=== PATIENT | female | born 1970 | race Two or more races ===

== ENCOUNTER 2022-08-01 06:05 | Emergency (ER) | payer BC ==
[~2022-08-01] VITALS: Ht 162.6 cm; Wt 100.0 kg
[~2022-08-01 06:05] MED LIST: CLIN150C8
[2022-08-01 06:55] LABS: Urine Bacteria FEW /hpf (None Seen); Urine Blood Negative /uL (Negative); Urine Hyaline Cast FEW /lpf (0 - 2); Urine Mucus FEW (None Seen); Urine Specific Gravity 1.014 (1.001-1.035); Urine WBC 25 /hpf (0 - 5)
[2022-08-01] MEDS ORDERED: SODIUM CHLORIDE 0.9% 1,000 ML IV ONE ×2 (08:00)
[2022-08-01] MEDS ORDERED: PROMETHAZINE HCL 25 MG/ML 1ML IV ONE (08:00)
[2022-08-01] MEDS ORDERED: MORPHINE SULFATE 4 MG/ML SYR/VIAL IV ONE (08:00)
[2022-08-01] MEDS ORDERED: IOHEXOL 300 MG/ML 100ML BOTTLE IJ ONE (08:01)
[2022-08-01 08:14] LABS: Basophils # (auto) 0 10 ^3/uL (0-0.2); Basophils % (auto) 0.4 % (0.0-2.0); Eosinophils # (auto) 0.1 10 ^3/uL (0-0.8); Eosinophils % (auto) 1.1 % (0.0-7.0); Hematocrit 45.5 % (36.0-46.0); Hemoglobin 15.4 g/dL (12.2-16.2); Lymphocytes # (auto) 1.2 10 ^3/uL (0.4-5.4); Mean Corpuscular Hemoglobin 28.9 pg (28.0-32.0); Mean Corpuscular Hgb Conc. 33.9 g/dL (32.0-36.0); Mean Corpuscular Volume 85.4 fL (80.0-100.0); Monocytes # (auto) 0.5 10 ^3/uL (0-1.3); Monocytes % (auto) 9.2 % (0.0-12.0); Neutrophils % (auto) 68.3 % (37.0-80.0); Nucleated Red Blood Cells % 0.1 %; Red Blood Cells 5.33 10^6/uL (4.0-5.20); Red Cell Distribution Width 13.7 % (11.8-14.3); White Blood Cell 5.8 10^3/uL (4.4-10.8)
[2022-08-01] MEDS ORDERED: cefTRIAXone 1GM/50ML D5W 50 ML IV ONE (08:30)
[2022-08-01 08:40] LABS: Albumin 3.6 g/dL (3.4-5.0); Potassium 3.4 mmol/L (3.5-5.1)
[2022-08-01 08:43] LABS: BUN/Creatinine Ratio 9.3; Bilirubin, Total 0.8 mg/dL (0.2-1.0); Total Protein 7.7 g/dL (6.4-8.2)
[2022-08-01 09:17] LABS: Lactic Acid w/Reflex 2.3 mmol/L (0.4-2.0)
[2022-08-01] MEDS ORDERED: CEPH-510 PO (11:07)
[2022-08-01 11:14] VITALS: BP 112/69
== END 2022-08-01 11:29 | disposition home or self-care (01) ==
LOC: ER 06:05 → EEVIPCON 06:05 → ER 11:29
DX: N39.0 Urinary tract infection, site not specified (principal); E11.9 Type 2 diabetes mellitus without complications; I10 Essential (primary) hypertension; Z98.51 Tubal ligation status; Z88.1 Allergy status to other antibiotic agents
CPT/HCPCS: 36415; 71045; 74177; 80053; 81001; 83605; 83690; 85025; 87040; 93005; 96361; 96365; 96375; 99285; J0696; J2270; J2550; J7030; Q9967

== ENCOUNTER 2022-09-01 07:37 | Day surgery (SDC) | payer BC ==
[2022-08-30 12:28] LABS: Basophils # (auto) 0 10 ^3/uL (0-0.2); Basophils % (auto) 0.2 % (0.0-2.0); Eosinophils # (auto) 0.1 10 ^3/uL (0-0.8); Eosinophils % (auto) 1.3 % (0.0-7.0); Hematocrit 44.4 % (36.0-46.0); Hemoglobin 14.9 g/dL (12.2-16.2); Lymphocytes # (auto) 2.7 10 ^3/uL (0.4-5.4); Lymphocytes % (auto) 41.5 % (10.0-50.0); Mean Corpuscular Hgb Conc. 33.6 g/dL (32.0-36.0); Mean Corpuscular Volume 86.2 fL (80.0-100.0); Monocytes # (auto) 0.4 10 ^3/uL (0-1.3); Monocytes % (auto) 6.4 % (0.0-12.0); Neutrophils # (auto) 3.2 10 ^3/uL (1.6-8.6); Neutrophils % (auto) 50.6 % (37.0-80.0); Nucleated Red Blood Cells % 0.2 %; Red Blood Cells 5.15 10^6/uL (4.0-5.20); Red Cell Distribution Width 13.7 % (11.8-14.3); White Blood Cell 6.4 10^3/uL (4.4-10.8)
[2022-08-30 12:50] LABS: INR 0.96 (0.9-1.15); Partial Thromboplastin Time 25.9 sec (24.6-33.4)
[2022-08-30 13:13] LABS: BUN/Creatinine Ratio 11.7; Calcium 9.3 mg/dL (8.5-10.1); Potassium 3.7 mmol/L (3.5-5.1); Total Protein 7.9 g/dL (6.4-8.2)
[2022-08-30 13:15] LABS: Bilirubin, Total 0.7 mg/dL (0.2-1.0)
[~2022-09-01] VITALS: Ht 162.6 cm; Wt 98.4 kg
[~2022-09-01 07:37] MED LIST changes: +AMLO-489 PO; -CLIN150C8; +LIDOCAINE VISCOUS 2% 15ML UD ONE; +METF-372 PO; +diphenhdrAMINE HCL 50 MG/1 ML VL ONE
[2022-09-01] MEDS: fentaNYL CITRATE 100 MCG/2 ML VL ONE ×2 (09:05→09:08)
[2022-09-01] MEDS: MIDAZOLAM HCL 5 MG/ML-1ML VIAL ONE ×2 (09:05→09:08)
[2022-09-01] MEDS ORDERED: ONDANSETRON HCL 4 MG/2 ML VIAL ONE (09:14)
[2022-09-01 09:45] VITALS: BP 115/85
== END 2022-09-01 09:55 | disposition home or self-care (01) ==
LOC: GI 07:37
PROVIDERS: ATTEND Internal Medicine Gastroenterology
DX: R10.11 Right upper quadrant pain (principal); K29.50 Unspecified chronic gastritis without bleeding; K29.80 Duodenitis without bleeding; B96.81 Helicobacter pylori [H. pylori] as the cause of diseases classified elsewhere; I10 Essential (primary) hypertension; E11.9 Type 2 diabetes mellitus without complications; Z98.51 Tubal ligation status; Z20.822 Contact with and (suspected) exposure to COVID-19
CPT/HCPCS: 36415; 43239; 80053; 82962; 85025; 85610; 85730; 88305; 88342; J1200; J2250; J2405; J3010; J7030; U0003

== ENCOUNTER 2025-08-28 12:17 | Outpatient (CLI) | payer BC ==
[~2025-08-28 12:17] MED LIST changes: -AMLO-489 PO; +AMLO1TAB22 PO; -LIDOCAINE VISCOUS 2% 15ML UD ONE; -diphenhdrAMINE HCL 50 MG/1 ML VL ONE
[2025-08-28 12:37] LABS: Hematocrit 46.8 % (36.0-46.0); Hemoglobin 16.2 g/dL (12.2-16.2); Mean Corpuscular Hemoglobin 30.7 pg (28.0-32.0); Mean Corpuscular Volume 88.6 fL (80.0-100.0); Nucleated Red Blood Cells % 0.1 %
[2025-08-28 13:07] LABS: Alanine Aminotransferase 29 U/L (7-40); Albumin 4.6 g/dL (3.2-4.8); Amylase 71 U/L (30-118); Anion Gap 11 (5-15); BUN/Creatinine Ratio 9.4 (10.0-20.0); Calcium 9.9 mg/dL (8.7-10.4); Carbon Dioxide 28 mmol/L (20-31); Chloride 101 mmol/L (98-107); Lipase 41 U/L (12-53); Potassium 4.7 mmol/L (3.5-5.1); Sodium 140 mmol/L (136-145); Total Protein 7.9 g/dL (5.7-8.2)
[2025-08-28 13:08] LABS: Bilirubin, Total 0.8 mg/dL (0.2-1.0)
[2025-08-28 13:10] LABS: Alkaline Phosphatase 144 U/L (46-116); Blood Urea Nitrogen 6 mg/dL (9-23); Glucose 234 mg/dL (74-106)
== END 2025-08-28 17:00 | disposition home or self-care (01) ==
LOC: LAB 12:17
PROVIDERS: ATTEND Nurse Practitioner Family
DX: R10.11 Right upper quadrant pain (principal)
CPT/HCPCS: 36415; 80053; 82150; 83690; 85025

== ENCOUNTER 2025-08-30 11:02 | Emergency (ER) | payer BC ==
[~2025-08-30] VITALS: Ht 162.6 cm; Wt 91.4 kg
--- NOTE | 2025-08-30 12:15 | ED.PDOC ---
GI ASSESSMENT HPI Comments A 55 YEAR OLD FEMALE PRESENTS TO THE ED WITH COMPLAINT OF ABDOMINAL PAIN. PATIENT STATES SHE HAS BEEN HAVING EPIGASTRIC ABDOMINAL RADIATING TO THE RIGHT FLANK FOR THE PAST ONE WEEK. PATIENT STATES SHE WAS AT [facility] THREE DAYS PRIOR WITH SIMILAR SYMPTOMS AND HAD UTRASOUND PATIENT STATES ULTRASOUND DID NOT SHOW GALLSTONES. PATIENT WAS OTHERWISE STATES SHE WAS DISCHARGED WITH PAIN MEDICATIONS. PATIENT STATES SHE CAME BACK TODAY DUE TO PERSISTENCE OF HER PAIN WITH ASSOCIATED NAUSEA. PATIENT DENIES FEVER, CHILLS, SHORTNESS OF BREATH, CHEST PAIN, VOMITING, HEADACHE, OR OTHER COMPLAINTS. NO OTHER SYMPTOMS OR MODIFYING FACTORS AT THIS TIME. PATIENT IS ALERT, ORIENTED X 4, AND HAS STEADY GAIT. Chief Complaint: Abdominal Pain Time Seen by MD: 12:12 Reviewed Notes: Nurses Notes, Medications, Allergies Allergies: Coded Allergies: Erythromycin (Verified Allergy, Unknown, 08/01/22) Home Meds Active Scripts Ondansetron Odt 4MG Tab (ZOFRAN PO) 4 Mg Tb, 4 MG PO BID, #20 TAB ODT TAB-DISSOLVE IN MOUTH, THEN SWALLOW Prov:MANUELA OROSCO 08/30/25 Methocarbamol (Methocarbamol) 750 Mg Tab, 750 MG PO BID, #20 TAB Prov:MANUELA OROSCO 08/30/25 Ibuprofen (Ibuprofen) 800 Mg Tab, 1 TAB PO TID, #30 TAB Prov:MANUELA OROSCO 08/30/25 Reported Medications Metformin Hydrochloride (Metformin Hcl) 1,000 Mg Tab, 1000 MG PO BID, TAB 08/30/22 Amlodipine Besylate (Amlodipine Besylate) 5 Mg Tab, 5 MG PO DAILY, TAB 08/30/22 Information Source: Patient Mode of Arrival: Ambulatory Brought in by: SELF Timing: Days Duration: Since onset, Days Prehospital treatment: Treatment Quality: Aching, Cramping, Colicky Vomitus: None Stool: Normal Severity: Moderate Recent: None Recent Hx of: None Pain Location: RUQ, Other (RIGHT MIDDLE BACK ) Modifying Factors: Movement Associated sign and symptoms: Nausea, Abdominal Pain Past Medical History PAST MEDICAL HISTORY: DM, HTN Surgical History: BTL DISTRIBUTION SUPERVISOR History: No Pertinent DISTRIBUTION SUPERVISOR History Family History Family History: Reviewed,noncontributory to illness Social History Smoker: Non-Smoker Alcohol: Denies ETOH Use Drugs: Denies Drug Use Lives In: Home Constitutional: denies: chills, diaphoresis, fatigue, fever, malaise, sweats, weakness, others EENTM: denies: blurred vision, double vision, ear bleeding, ear discharge, ear drainage, ear pain, ear ringing, eye pain, eye redness, hearing loss, mouth pain, mouth swelling, nasal discharge, nose bleeding, nose congestion, nose pain, photophobia, tearing, throat pain, throat swelling, voice changes, others Respiratory: denies: cough, hemoptysis, orthopnea, SOB at rest, shortness of breath, SOB with excertion, stridor, wheezing, others Cardiovascular: denies: chest pain, dizzy spells, diaphoresis, Dyspnea on e xertion, edema, irregular heart beat, left arm pain, lightheadedness, palpitations, PND, syncope, others Gastrointestinal: reports: abdominal pain, nausea; denies: abdomen distended, blood streaked bowels, constipated, diarrhea, dysphagia, difficulty swallowing, hematemesis, melena, poor appetite, poor fluid intake, rectal bleeding, rectal pain, vomiting, others Genitourinary: denies: abnormal vagina bleeding, burning, dyspareunia, dysuria, flank pain, frequency, hematuria, incontinence, pain, , vagina discharge, urgency, others Neurological: denies: dizziness, fainting, headache, left sided numbness, left sided weakness, numbness, paresthesia, pre-existing deficit, right sided numbness, right sided weakness, seizure, speech problems, tingling, tremors, weakness, others Musculoskeletal: reports: back pain, muscle pain; denies: gout, joint pain, joint swelling, muscle stiffness, neck pain, others Integumetry: denies: bruises, change in color, change in hair/nails, dryness, laceration, lesions, lumps, rash, wounds, others Allergic/Immunocompromised: denies: Difficulty Healing, Frequent Infections, Hives, Itching, others Hematologic/Lymphatic: denies: anemia, blood clots, easy bleeding, easy bruising, swollen glands, others Endocrine: denies: excessive hunger, excessive sweating, excessive thirst, excessive urination, flushing, intolerance to cold, intolerance to heat, unexpla ined weight gain, unexplained weight loss, others Psychiatric: denies: anxiety, bipolar disorder, depression, hopeless, panic disorder, schizophrenia, sleepless, suicidal, others All Other Systems: Reviewed and Negative Physical Exam General Appearance: Mild Distress, Obese HEENT: Normal ENT Inspection, PERRL/EOMI, Pharynx Normal, TMs Normal Neck: Full Range of Motion, Non-Tender, Normal, Normal Inspection Respiratory: Chest Non-Tender, Lungs Clear, No Accessory Muscle Use, No Respiratory Distress, Normal Breath Sounds Cardiovascular: No Edema, No JVD, No Murmur, No Gallop, Normal Peripheral Pul ses, Regular Rate/Rhythm Breast Exam: Deferred Gastrointestinal: No Organomegaly, No Pulsatile Mass, Normal Bowel Sounds, RUQ, Soft, Tenderness (RIGHT UPPER ABD TO MIDDLE BACK, NO GUARDING AND REBOUND TENDERNESS. ) Genitalia: Deferred Pelvic: Deferred Rectal: Deferred Extremities: No calf tenderness, Normal capillary refill, Normal inspection, Normal range of motion, Non-tender, No pedal edema Musculoskeletal : Location: Right Extremity Location: Back Apperance: Tenderness: Moderate (MUSCLE SPASM ON RIGHT MIDDLE BACK, NO BONY TENDERNESS AND SWELLING. 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 Was a procedure done?: No GI differential Dx Differential Diagnosis: Appendicitis, Cholecystitis, Constipation, Gastritis/PUD, Gastroenteritis, UTI, Urolithiasis, Dehydration, Food Poisoning, Bacterial, Viral, Stress Ulcer, Kidney Stone Other Differential Diagnosis , BILIARY COLIC, GALLSTONES X-Ray, Labs, Meds, VS Vital Signs Date Time Temp Pulse Resp B/P (MAP) Pulse Ox O2 Delivery O2 Flow Rate FiO2 08/30/25 13:32 98.5 74 16 149/83 (105) 96 98.5 08/30/25 11:14 87 08/30/25 11:04 98.1 106 20 150/82 100 98.1 Lab Test 08/30/25 13:05 Range/Units White Blood Count 4.8 # 4.4-10.8 10^3/uL Red Blood Count 5.16 4.0-5.20 10^6/uL Hemoglobin 15.8 12.2-16.2 g/dL Hematocrit 45.5 36.0-46.0 % Mean Corpuscular Volume 88.2 80.0-100.0 fL Mean Corpuscular Hemoglobin 30.6 28.0-32.0 pg Mean Corpuscular Hemoglobin Concent 34.7 32.0-36.0 g/dL Red Cell Distribution Width 13.0 11.8-14.3 % Platelet Count 287 140-450 10^3/uL Mean Platelet Volume 6.9 6.9-10.8 fL Neutrophils (%) (Auto) 60.3 37.0-80.0 % Lymphocytes (%) (Auto) 29.4 10.0-50.0 % Monocytes (%) (Auto) 8.1 0.0-12.0 % Eosinophils (%) (Auto) 1.8 0.0-7.0 % Basophils (%) (Auto) 0.4 0.0-2.0 % Neutrophils # (Auto) 2.9 1.6-8.6 10 ^3/uL Lymphocytes # (Auto) 1.4 0.4-5.4 10 ^3/uL Monocytes # (Auto) 0.4 0-1.3 10 ^3/uL Eosinophils # (Auto) 0.1 0-0.8 10 ^3/uL Basophils # (Auto) 0 0-0.2 10 ^3/uL Nucleated Red Blood Cells 0.0 % Sodium Level 138 136-145 mmol/L Potassium Level 4.0 3.5-5.1 mmol/L Chloride Level 100 98-107 mmol/L Carbon Dioxide Level 29 20-31 mmol/L Anion Gap 9 5-15 Blood Urea Nitrogen 7 L 9-23 mg/dL Creatinine 0.68 0.550-1.02 mg/dL Glomerular Filtration Rate Calc 103 >90 mL/min BUN/Creatinine Ratio 10.3 10.0-20.0 Serum Glucose 260 H 74-106 mg/dL Calcium Level 9.9 8.7-10.4 mg/dL Total Bilirubin 0.8 0.2-1.0 mg/dL Aspartate Amino Transferase (AST) 18 13-40 U/L Alanine Aminotransferase (ALT) 27 7-40 U/L Alkaline Phosphatase 132 H 46-116 U/L Total Protein 7.7 5.7-8.2 g/dL Albumin 4.5 3.2-4.8 g/dL Lipase 37 12-53 U/L Current Medications Medications (Trade) Dose Ordered Sig/Castro Route Start Time Stop Time Status Last Admin Sodium Chloride 1,000 ml @ 1,000 mls/hr Q1H ONCE IV 08/30/25 13:30 08/30/25 14:29 DC 08/30/25 13:[address] [address] Ph: [phone] DIAGNOSTIC IMAGING Diagnostic Imaging Report : [id number] Signed PATIENT: MAYELA DOMINGUEZ ACCT: [id number] UNIT: [id number] : 1970 LOC: ER ROOM / BED: / AGE / SEX: 55 / F ADM STATUS: REG ER SERVICE 1218 ORDERING PHYSICIAN: MANUELA OROSCO PROCEDURE(s): ABPL - CT AB PEL WO CON-NO ORAL OR IV REASON: RIGHT FLANK PAIN ORDER NUMBER(s): [id number], ACCESSION NUMBER(s): [id number] Indication: RIGHT FLANK PAIN Technique: CT axial images of the abdomen and pelvis are obtained without contrast. Coronal and sagittal reformats were obtained. Radiation Dose Information: CTDI volume is 20.45 mGy. Dose-length product is 1034.19 mGy*cm Comparison: CT ABD PELVIS WO CONTRAST on DOS: 03/05/22 FINDINGS: There is limited interpretation of the abdomen and pelvis without administration of intravenous contrast. Lung bases demonstrate no pleural effusion. Adrenal glands, spleen, pancreas unremarkable in shape. Hepatic steatosis. No CT evidence for cholelithiasis. No hydronephrosis, nephrolithiasis. Stomach is partially distended. Small bowel loops are normal in caliber. Colonic diverticula. Moderate volume stool throughout the colon. Normal appendix. Abdominal aortic atherosclerotic disease. Bladder contracted. No free pelvic fluid. No inguinal lymphadenopathy. [id number] bilateral sacroiliac degenerative joint disease. [id number] thoracolumbar degenerative disc disease. Moderate lumbar facet hypertrophic changes. IMPRESSION: Limited evaluation without contrast. No evidence for obstructive uropathy. Hepatic steatosis. Colonic diverticular disease. Other findings as described. ATED BY: LUZ ELENA GROVER MD DICTATED DATE/TIME: 08/30/25 1304 SIGNED BY: LUZ ELENA GROVER MD SIGNED DATE/TIME: 08/30/25 1304 CC: X-Ray, Labs, Meds, VS Comment COURSE: EXTERNAL MEDICAL RECORDS REVIEWED: [NONE] INDEPENDENT HISTORIANS: [NONE] SOCIAL DETERMINANTS OF HEALTH: [NONE] LABS ORDERED: CBC, CMP, UA, LIPASE, REVIEWED AND INTERPRETED RESULTS: NONE IMAGING ORDERED: CT ABDOMEN AND PELVIS NONCONTRAST TREATMENTS ORDERED: 0.9 NS L1 IV BOLUS, ZOFRAN 4MG IVP AND TORADOL 30MG IVP PROCEDURES PERFORMED: NONE CRITICAL CARE TIME: NONE I HAVE DISCUSSED THE PATIENT WITH THE ATTENDING PHYSICIAN DR. RASMUSSEN AND HE AGREES WITH THE PATIENT'S PLAN OF CARE AND DISPOSITION. BASED ON HISTORY OF PRESENT ILLNESS, AND PHYSICAL EXAM, PATIENT WILL BE DISCHARGED HOME. DISCUSSED PLAN FOR DISCHARGE HOME WITH RX [MOTRIN , ZOFRAN AND ROBAXIN]. MEDICATION WARNINGS GIVEN. SHARED DECISION MAKING: DISCUSSED WITH PATIENT THAT THEIR WORKUP WAS NORMAL. PATIENT INSTRUCTED TO FOLLOW UP WITH PRIMARY CARE PROVIDER IN 1-2 DAYS FOR RE- EVALUATION OF SYMPTOMS. PATIENT VERBALIZES UNDERSTANDING TO RETURN TO ED FOR NEW OR WORSENING SYMPTOMS OR IF FOLLOW UP WITH PCP CANNOT BE OBTAINED. PATIENT FEELS COMFORTABLE GOING HOME AT THIS TIME. ALL QUESTIONS ADDRESSED AT TIME OF DISCHARGE. Time of 1ST Reevaluation: 14:36 Reevaluation 1ST: Improved Patient Education/Counseling: Diagnosis, Treatment, Need For Follow Up Family Education/Counseling: Diagnosis, Treatment, Need For Follow Up Medical Screening: No EMC Exist At This Time SEPSIS Sepsis Screen Date sepsis recognized/suspect: Aug 30, 2025 Time Sepsis recognized/suspect: 1105 Recent Procedure: No On Antibiotic Therapy: No Respiratory Rate >20: No Heart Rate >90: No Temp<36 C (96.8 F) or >38.3 C: No SBP <90 or MAP <65 mmHG: No New Acute Mental Status Change: No Is the patient on CPAP, BIPAP,: No Physician Orders Electrocardigram (08/30/25 11:09) Urinalysis (08/30/25 11:16) Ct Ab Pel Wo Con-No Oral Or Iv (08/30/25 12:18) Heplock Iv (08/30/25 ) Vital Signs Date Time Temp Pulse Resp B/P (MAP) Pulse Ox O2 Delivery O2 Flow Rate FiO2 08/30/25 13:32 98.5 74 16 149/83 (105) 96 98.5 08/30/25 11:14 87 08/30/25 11:04 98.1 106 20 150/82 100 98.1 Laboratory Tests Test 08/30/25 13:05 White Blood Count 4.8 10^3/uL (4.4-10.8) # Medications Medications Dose Ordered Sig/Castro Route Start Time Stop Time Status Last Admin Dose Admin Sodium Chloride 1,000 ml @ 1,000 mls/hr Q1H ONCE IV 08/30/25 13:30 08/30/25 14:29 DC 08/30/25 13:45 Departure 1 Departure Time of Disposition: 14:37 Impression: Primary Impression: Right upper quadrant abdominal pain Additional Impression: DDD (degenerative disc disease), thoracic Disposition: HOME / SELF CARE / HOMELESS Condition: Stable Additional Instructions: F/U PCP IN 2 DAYS RECHECK. IF CONDITION BECOME WORSE, RETURN TO ED JAJA. e-Prescriptions Ondansetron Odt 4MG Tab (ZOFRAN PO) 4 Mg Tb 4 MG PO BID, #20 TAB ODT TAB-DISSOLVE IN MOUTH, THEN SWALLOW Prov: MANUELA OROSCO 08/30/25 Methocarbamol (Methocarbamol) 750 Mg Tab 750 MG PO BID, #20 TAB Prov: MANUELA OROSCO 08/30/25 Ibuprofen (Ibuprofen) 800 Mg Tab 1 TAB PO TID, #30 TAB Prov: MANUELA OROSCO 08/30/25 Discharged With: Self Critical Care Note Critical Care Time?: No Stability Stability form required: No Heart Score Heart Score: Heart Score Response (Comments) Value History N/A 0 EKG N/A 0 Age N/A 0 Risk Factors N/A 0 Troponin N/A 0 Total 0 I personally scribed for MANUELA OROSCO ([email or web address]) on 08/30/25 at 12:15. Electronically submitted by Domo Sesay ([email or web address]). I personally scribed for MANUELA OROSCO ([email or web address]) on 08/30/25 at 13:05. Electronically submitted by Domo Sesay ([email or web address]). MANUELA OROSCO Aug 30, 2025 12:15
[2025-08-30] MEDS ORDERED: KETOROLAC TROMETH 60MG/2ML VIAL IM ONE (12:30)
--- NOTE | 2025-08-30 13:02 | DVH ---
Indication: RIGHT FLANK PAIN Technique: CT axial images of the abdomen and pelvis are obtained without contrast. Coronal and sagittal reformats were obtained. Radiation Dose Information: CTDI volume is 20.45 mGy. Dose-length product is 1034.19 mGy*cm Comparison: CT ABD PELVIS WO CONTRAST on DOS: 03/05/22 FINDINGS: There is limited interpretation of the abdomen and pelvis without administration of intravenous contrast. Lung bases demonstrate no pleural effusion. Adrenal glands, spleen, pancreas unremarkable in shape. Hepatic steatosis. No CT evidence for cholelithiasis. No hydronephrosis, nephrolithiasis. Stomach is partially distended. Small bowel loops are normal in caliber. Colonic diverticula. Moderate volume stool throughout the colon. Normal appendix. Abdominal aortic atherosclerotic disease. Bladder contracted. No free pelvic fluid. No inguinal lymphadenopathy. [id number] bilateral sacroiliac degenerative joint disease. Qbvx-[id number] thoracolumbar degenerative disc disease. Moderate lumbar facet hypertrophic changes. IMPRESSION: Limited evaluation without contrast. No evidence for obstructive uropathy. Hepatic steatosis. Colonic diverticular disease. Other findings as described.
[2025-08-30 13:32] VITALS: BP 149/83; PULSE 74; RESP 16; TEMP 98.5; O2SAT 96
[2025-08-30 13:42] LABS: Hematocrit 45.5 % (36.0-46.0); Hemoglobin 15.8 g/dL (12.2-16.2); Mean Corpuscular Hemoglobin 30.6 pg (28.0-32.0); Mean Corpuscular Volume 88.2 fL (80.0-100.0); Nucleated Red Blood Cells % 0.0 %
[2025-08-30] MEDS: SODIUM CHLORIDE 0.9% 1,000 ML IV ONE (13:45)
[2025-08-30] MEDS: KETOROLAC TROMETH 30 MG/ML 1ML VIAL IV ONE (13:47)
[2025-08-30] MEDS: ONDANSETRON HCL 4 MG/2 ML VIAL IV ONE (13:47)
[2025-08-30 13:55] LABS: Alanine Aminotransferase 27 U/L (7-40); Albumin 4.5 g/dL (3.2-4.8); Anion Gap 9 (5-15); BUN/Creatinine Ratio 10.3 (10.0-20.0); Bilirubin, Total 0.8 mg/dL (0.2-1.0); Calcium 9.9 mg/dL (8.7-10.4); Carbon Dioxide 29 mmol/L (20-31); Chloride 100 mmol/L (98-107); Lipase 37 U/L (12-53); Potassium 4.0 mmol/L (3.5-5.1); Sodium 138 mmol/L (136-145); Total Protein 7.7 g/dL (5.7-8.2)
[2025-08-30 13:56] LABS: Alkaline Phosphatase 132 U/L (46-116); Blood Urea Nitrogen 7 mg/dL (9-23); Glucose 260 mg/dL (74-106)
[2025-08-30] MEDS ORDERED: METH-1182 PO (14:33)
[2025-08-30] MEDS ORDERED: IBUP-1456 PO (14:33)
[2025-08-30] MEDS ORDERED: ZOFR4T PO (14:33)
--- NOTE | 2025-08-30 19:40 | ECG ---
[facility] Test Date: 2025-08-30 Test Time: 11:14:20 Pat Name: MAYELA DOMINGUEZ Department: ED Room: Gender: F Physical Plant Manager: BRAYDEN : 1970 Requested By: YO RASMUSSEN Order Number: [id number] Reading MD: Lyndon Rosa Measurements Intervals Gypsy Rate: 87 P: 58 MT: 144 QRS: 103 QRSD: 81 T: 84 QT: 367 QTc: 442 Interpretive Statements Sinus rhythm Right axis deviation Electronically Signed On 09-02-2025 17:50:27 PST by Lyndon Rosa Please click the below link to view image of tracing.
== END 2025-08-30 14:45 | disposition home or self-care (01) ==
LOC: ER 11:02
DX: M51.34 Other intervertebral disc degeneration, thoracic region (principal); R10.11 Right upper quadrant pain; E11.9 Type 2 diabetes mellitus without complications; I10 Essential (primary) hypertension; Z98.51 Tubal ligation status; Z88.1 Allergy status to other antibiotic agents; Z79.899 Other long term (current) drug therapy
CPT/HCPCS: 36415; 74176; 80053; 83690; 85025; 93005; 96361; 96374; 96375; 99285; J1885; J2405; J7030